=== PATIENT | female | born 2000 | race Caucasian/White ===

== ENCOUNTER 2025-02-24 13:36 | Emergency (ER) | payer SELFPAY ==
[~2025-02-24] VITALS: Ht 160 cm; Wt 68.0 kg
[2025-02-24 13:40] VITALS: O2SAT 98
[2025-02-24] MEDS: IBUPROFEN 600MG TABLET PO ONE (14:08)
[2025-02-24 16:46] VITALS: TEMP 36.7
[2025-02-24 17:18] VITALS: BP 116/90; PULSE 86; RESP 19; O2SAT 100
== END 2025-02-24 17:26 | disposition home or self-care (01) ==
LOC: ER 13:36
DX: S02.2XXA Fracture of nasal bones, initial encounter for closed fracture (principal); Y08.89XA Assault by other specified means, initial encounter; Y93.89 Activity, other specified; Y92.89 Other specified places as the place of occurrence of the external cause; Y99.8 Other external cause status
CPT/HCPCS: 70486; 99284; Z7610 ×3; A4606